=== PATIENT | female | born 1930 | race Caucasian/White ===

== ENCOUNTER 2019-06-03 15:58 | Emergency (ER) | payer OTHER ==
[~2019-06-03] VITALS: Ht 162.6 cm; Wt 52.2 kg
--- NOTE | 2019-06-03 16:09 | NUR ---
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
--- NOTE | 2019-06-03 16:15 | NUR ---
DR. BUSTAMANTE AT BEDSIDE FOR EVAL.
--- NOTE | 2019-06-03 16:30 | NUR ---
ER PHLEB AT BEDSIDE FOR BLOOD DRAW.
[2019-06-03] MEDS ORDERED: LORA10TA68 PO (16:37)
[2019-06-03] MEDS ORDERED: OLME20TA23 PO (16:37)
[2019-06-03] MEDS ORDERED: PROP20TA19 PO (16:37)
[2019-06-03] MEDS ORDERED: TRAM50TA2 PO (16:37)
[2019-06-03] MEDS ORDERED: CHOL100040 PO (16:37)
[2019-06-03] MEDS ORDERED: WARF-58 PO (16:37)
[2019-06-03] MEDS ORDERED: MEMA10TA PO (16:37)
[2019-06-03] MEDS ORDERED: DONE5TAB34 PO (16:37)
[2019-06-03 16:46] LABS: BASOPHILS # (AUTO) 0.1 /CMM (0.0-0.2); BASOPHILS % (AUTO) 1.8 % (0.0-2.0); EOSINOPHILS % (AUTO) 2.7 % (0.0-6.0); HEMATOCRIT 35 % (33-45); HEMOGLOBIN 11.8 g/dL (11.5-14.8); LYMPHOCYTES # (AUTO) 1.3 /CMM (0.8-4.8); LYMPHOCYTES % (AUTO) 32.2 % (20.0-44.0); MEAN CORPUSCULAR HGB CONC 34 g/dl (31.0-36.0); MEAN CORPUSCULAR VOLUME 110 fL (82-100); MONOCYTES # (AUTO) 0.5 /CMM (0.1-1.30); MONOCYTES % (AUTO) 12.6 % (2.0-12.0); NEUTROPHILS % (AUTO) 50.7 % (43.0-81.0); PLATELET COUNT (AUTO) 168 /CMM (150-450); RED BLOOD CELL COUNT(AUTO) 3.16 MIL/uL (4.0-5.2); WHITE BLOOD COUNT (AUTO) 3.9 K/uL (4.3-11.0)
[2019-06-03 16:55] LABS: CALCIUM, SERUM 9.6 mg/dL (8.5-10.1); CARBON DIOXIDE 27 mmol/L (21-32); CHLORIDE 103 mmol/L (98-107); CREATININE 1.4 mg/dL (0.6-1.3); GLUCOSE 93 mg/dL (74-106); SODIUM SERUM 138 mmol/L (136-145); UREA NITROGEN, BLOOD 30 mg/dL (7-18)
[2019-06-03 17:11] LABS: APPEARANCE,URINE Slightly Cloudy (CLEAR); BILIRUBIN,URINE Negative (NEGATIVE); BLOOD, URINE Moderate Ery/uL (NEGATIVE); COLOR,URINE Yellow (YELLOW); KETONES,URINE Trace (NEGATIVE); LEUKOCYTE ESTERASE ,URINE Trace (NEGATIVE); NITRITE, URINE Negative (NEGATIVE); PH,URINE 5.5 (5.0-8.0); PROTEIN,URINE Trace mg/dl (NEGATIVE); UGLUCOSE Negative (NEGATIVE)
[2019-06-03 17:21] LABS: BACTERIA,URINE Few /HPF (None Seen); SQUAMOUS EPITHELIAL CELL,UR Moderate /HPF (None Seen)
[2019-06-03 17:22] LABS: HYALINE CASTS, URINE Few /LPF (None Seen)
[2019-06-03] MEDS ORDERED: MORPHINE SULFATE INJ 2 MG/ML DISP.SYRIN IV ONE (17:30)
[2019-06-03] MEDS ORDERED: IV NS 0.9% 500 ML BAG IV ONE (17:30)
[2019-06-03] MEDS ORDERED: ONDANSETRON HCL/PF 4 MG/2 ML VIAL IV ONE (17:30)
--- NOTE | 2019-06-03 17:32 | NUR ---
DAMPER FITTER AT BEDSIDE FOR XRAY.
[2019-06-03] MEDS ORDERED: ONDANSETRON HCL/PF 4 MG/2 ML VIAL ONE (17:43)
[2019-06-03] MEDS ORDERED: MORPHINE SULFATE INJ 2 MG/ML DISP.SYRIN ONE (17:43)
--- NOTE | 2019-06-03 18:15 | NUR ---
IV removed. Catheter intact and site benign. Pressure and 4x4 applied to site. No bleeding noted. Patient discharged to home in stable condition. Written and verbal after care instructions given. Patient verbalizes understanding of instruction.
[2019-06-03 18:16] VITALS: BP 138/72
== END 2019-06-03 18:16 | disposition home or self-care (01) ==
LOC: ER 16:02
DX: R07.89 Other chest pain (principal); M54.9 Dorsalgia, unspecified; F03.90 Unspecified dementia, unspecified severity, without behavioral disturbance, psychotic disturbance, mood disturbance, and anxiety; I10 Essential (primary) hypertension; I48.91 Unspecified atrial fibrillation; Z86.73 Personal history of transient ischemic attack (TIA), and cerebral infarction without residual deficits; Z88.0 Allergy status to penicillin; Z79.899 Other long term (current) drug therapy; Z79.01 Long term (current) use of anticoagulants
CPT/HCPCS: 36415; 71045; 80048; 81001; 84484; 85025; 87086; 93005 ×2; 96374; 96375; 99284; J2270; J2405; J7040; 81000-TC